=== PATIENT | male | born 1945 | race Caucasian/White ===

== ENCOUNTER → 2020-10-26 11:05 | Outpatient (BNVA) | payer MEDICARE, BC, SELFPAY | PROVIDERS: Referring Provider Family Medicine; Visit Provider Nurse Practitioner | DX: G40.909 Epilepsy, unspecified, not intractable, without status epilepticus (principal); I69.398 Other sequelae of cerebral infarction | CPT/HCPCS: 99204 ==

== ENCOUNTER → 2023-10-14 08:52 | Outpatient (BNVA) | payer MEDICARE, BC, SELFPAY | PROVIDERS: Visit Provider Psychiatry & Neurology Neurology | DX: I69.320 Aphasia following cerebral infarction (principal); I69.352 Hemiplegia and hemiparesis following cerebral infarction affecting left dominant side; I69.398 Other sequelae of cerebral infarction; F01.511 Vascular dementia, unspecified severity, with agitation; Z95.818 Presence of other cardiac implants and grafts | CPT/HCPCS: 99203 ==

== ENCOUNTER 2023-10-23 12:22 | Outpatient (CLI) | payer MEDICARE, BC, SELFPAY ==
--- NOTE | 2023-10-23 12:30 | CT_ITS ---
WS: [id number] CT ANGIOGRAM CEREBRAL AND CAROTID ARTERIES HISTORY: I63.9 - Cerebral infarction, unspecified TECHNIQUE: CT angiogram is performed of the carotid and cerebral arteries. During arterial injection imaging is obtained from the skull vertex to the aortic arch in 1.25 mm imaging. Coronal and sagittal reformats are submitted. Additional multi planar reformats of the carotid and cerebral arteries are submitted, MIP imaging also reviewed. NASCET criteria utilized. [facility] CT [id number] at least one of these dose optimization techniques: automated exposure control; mA and/or kV adjust ment per patient size (includes targeted exams where dose is matched to clinical indication); or iter ative reconstruction. CONTRAST: Omnipaque 350; 100 mL IV. DLP: 1333.05 mGy.cm COMPARISON: None available. Noncontrast CT: Moderate to severe bilateral symmetric atrophy and mild small vessel disease. Small l acunar infarct LEFT sims radiata. Additional bilateral lacunar infarcts in the basal ganglia. Mild cerebellar atrophy. No hemorrhage or edema. Mild enlargement of the ventricles and extra-axial spaces due to atrophy. Carotid Angiogram: Right carotid: Common carotid artery: Arises normally from the innominate artery. No significant plaque or stenosis. Internal carotid artery: Small amount of plaque and intimal thickening at the bifurcation. No stenosi s. External carotid artery: Patent. Left carotid: Common carotid artery: Arises normally from the aorta. No significant plaque or stenosis. Internal carotid artery: Small amount of calcified plaque and intimal thickening at the bifurcation. No high-grade stenosis. External carotid artery: Patent. Right vertebral artery: Slightly smaller caliber in the LEFT vertebral artery. There are a few scatte red areas of calcified plaque. Left vertebral artery: Small amount of adjacent plaque at the origin. No stenosis. Subclavian arteries: No stenosis or significant abnormality. Upper thorax: Normal. Thyroid gland: Normal. Osseous structures: Unremarkable. CEREBRAL ANGIOGRAM: Intracranial vertebral arteries: Normal with no significant atherosclerosis. Basilar artery: No significant stenosis or occlusion. No aneurysm. Intracranial Internal carotid arteries: Mild calcified plaque at the cavernous segment. Greater than 50% stenosis on the RIGHT, estimated 60 to 70%. 50% stenosis estimated LEFT cavernous carotid artery. No aneurysm. Middle cerebral arteries: Normal. Anterior cerebral arteries and ACOM: Normal. Posterior cerebral arteries and PCOM's: Normal. Dural venous sinuses are normally enhancing. Mastoid air cells: Normal. Paranasal sinuses: Normal. Calvarium: Normal. CT/CT angio headneck* [id number] IMPRESSION: 1. No cervical carotid artery stenosis. Mild atherosclerotic plaque. 2. 60 to 70% stenosis RIGHT cavernous carotid artery. 3. 50% stenosis LEFT cavernous carotid artery. 4. No false pass of Zuñiga aneurysm or occlusions. 5. Moderate to severe bilateral symmetric atrophy and mild small vessel diseas e. Bilateral small lacunar infarcts.
[2023-10-23] MEDS: iohexol 350 mg/mL 500 mL Btl (per mL) IV (12:44)
== END 2023-10-23 12:23 | disposition home or self-care (01) ==
LOC: RAD 12:23
PROVIDERS: Visit Provider Psychiatry & Neurology Neurology
DX: I63.9 Cerebral infarction, unspecified (principal); I65.23 Occlusion and stenosis of bilateral carotid arteries; G31.9 Degenerative disease of nervous system, unspecified; F03.90 Unspecified dementia, unspecified severity, without behavioral disturbance, psychotic disturbance, mood disturbance, and anxiety
CPT/HCPCS: 36415; 70496; 70498; 80053; 80177; 82542; 82607; 82746; 83735; 83921; 84439; 84443; 84481; 85025; 86592; Q9967